=== PATIENT | male | born 1960 | race Caucasian/White ===

== ENCOUNTER → 2017-11-29 | Outpatient (CLI) | payer OTHER ==
[2017-11-29 10:04] VITALS: BP 153/90; PULSE 75; RESP 16; TEMP 98
== END | disposition home or self-care (01) ==
LOC: PROCWHC3 09:45
PROVIDERS: ATTEND Surgery Plastic and Reconstructive Surgery
DX: K94.03 Colostomy malfunction (principal)
CPT/HCPCS: 99214

== ENCOUNTER 2017-12-01 08:26 | Day surgery (SDC) | payer BC, OTHER ==
[2017-11-28 18:21] VITALS: BMI 39.1
--- NOTE | 2017-12-01 00:42 | P.GSHP ---
History of Present Illness H&P Date: 12/01/17 CHIEF COMPLAINT: History of rectal cancer HISTORY OF PRESENT ILLNESS: The patient is a 57-year-old male who presents with history of rectal cancer. Lower endoscopy was offered for further evaluation and management. PAST MEDICAL HISTORY: Please see list. PAST SURGICAL HISTORY: Please see list. MEDICATIONS: Please see list. ALLERGIES: Please see list. SOCIAL HISTORY: No illicit drug use FAMILY HISTORY: No reports of Crohn disease or ulcerative colitis. REVIEW OF ORGAN SYSTEMS: CONSTITUTIONAL: No reports of fevers or chills. PHYSICAL EXAM: VITAL SIGNS: Stable GENERAL: Well-developed pleasant in no acute distress. HEENT: No scleral icterus. Extraocular movements grossly intact. Moist buccal mucosa. NECK: Supple without lymphadenopathy. CHEST: Unlabored respirations. Equal bilateral excursions. CARDIOVASCULAR: Regular rate and rhythm. Distal 2+ pulses. ABDOMEN: Soft, nontender, nondistended. Descending left lower quadrant colostomy MUSCULOSKELETAL: No clubbing, cyanosis, or edema. ASSESSMENT: 1. History of rectal cancer 2. Ostomy status PLAN: 1. Recommend proceeding with a lower endoscopy Past Medical History Past Medical History: Cancer, Hypertension, Sleep Apnea/CPAP/BIPAP Additional Past Medical History / Comment(s): Colon CA, 10/2011, HAS COLOSTOMY. NOT USING CPAP. History of Any Multi-Drug Resistant Organisms: None Reported Past Surgical History: Bowel Resection Additional Past Surgical History / Comment(s): Colostomy. LASER EYES. COLONOSCOPIES. Past Anesthesia/Blood Transfusion Reactions: No Reported Reaction Smoking Status: Never smoker - Past Family History Father Family Medical History: Cancer Additional Family Medical History / Comment(s): PROSTATE CA. Daughter(s) Family Medical History: Blood Disorder Additional Family Medical History / Comment(s): MTHFR Medications and Allergies Home Medications Medication Instructions Recorded Confirmed Type Lisinopril-Hctz 20-12.5 mg 1 tab PO DAILY 11/28/17 11/29/17 History [Zestoretic 20-12.5] Allergies Allergy/AdvReac Type Severity Reaction Status Date / Time No Known Allergies Allergy Verified 11/29/17 09:56
[~2017-12-01 08:26] MED LIST: LACTATED RINGERS 1,000 ML IV SCH; LIDOCAINE 1% 20 ML VIAL (10MG/ML) FOR IV START INTRADERMA PRN; MIDAZOLAM 2 MG/2 ML VIAL IV PRN
[2017-12-01 09:16] VITALS: RESP 16; TEMP 97.3
[2017-12-01] MEDS ORDERED: PROPOFOL 10 MG/ML 20 ML VIAL IV ONE (09:29)
--- NOTE | 2017-12-01 09:54 | P.PCN ---
Date of Procedure: 12/01/17 Description of Procedure: PREOPERATIVE DIAGNOSIS: History of rectal cancer Descending colostomy status Colonoscopy surveillance POSTOPERATIVE DIAGNOSIS: History of rectal cancer Descending colostomy status Colonoscopy surveillance OPERATION: Colonoscopy through descending colostomy to appendiceal orifice. SURGEON: Marilou So MD. ANESTHESIA: MAC. INDICATIONS: The patient is a 57-year-old male who presents for colonoscopy following rectal cancer and descending colostomy, 2011. Benefits and risks were described and informed consent was obtained. DESCRIPTION OF PROCEDURE: The patient had undergone Gatorade, MiraLAX and Dulcolax prep. He had been brought into the operating room and laid supine. The stoma appliance was removed. An Olympus colonoscope was advanced through the descending colostomy to the appendiceal orifice. The prep was excellent with clear visualization of the mucosal folds. The scope was removed with visualization of each mucosal fold. No scattered diverticulosis was encountered. No colonic polyps were found. No evidence of focal colitis was found. The colon was desufflated. His stoma appliance was applied. The patient had tolerated the procedure well. Withdrawal time was over 6 minutes. FINDINGS: No arteriovenous malformations. No adenomatous polyps. No focal colitis. RECOMMENDATIONS: Lower endoscopy in 3 years, 2020 Plan - Discharge Summary New Discharge Prescriptions: No Action Lisinopril-Hctz 20-12.5 mg [Zestoretic 20-12.5] 1 tab PO DAILY Discharge Medication List Lisinopril-Hctz 20-12.5 mg [Zestoretic 20-12.5] 1 tab PO DAILY 11/28/17 [History ]
[2017-12-01 10:19] VITALS: BP 128/84; PULSE 72
== END 2017-12-01 11:03 | disposition home or self-care (01) ==
LOC: ORWHC2ENDO 08:26
PROVIDERS: ATTEND Surgery Plastic and Reconstructive Surgery
DX: C20 Malignant neoplasm of rectum (principal); I10 Essential (primary) hypertension; G47.30 Sleep apnea, unspecified; Z79.899 Other long term (current) drug therapy; Z93.3 Colostomy status
CPT/HCPCS: 44388; J2704; 44389

== ENCOUNTER → 2018-08-01 | Outpatient (CLI) | payer OTHER ==
--- NOTE | 2018-08-01 16:33 | XR ---
Lumbar spine HISTORY: Low back pain, lifting injury 3 views of the lumbar spine Lumbar vertebral bodies show preserved height, alignment, and bone mineralization. Sclerosis in the p osterior elements of the lower lumbar spine is noted compatible with facet arthropathy. There is mild multilevel spondylosis. Some loss of disc height present L5-S1. Bone mineralization is mildly reduce d. IMPRESSION: Degenerative disc disease and facet arthropathy.
== END | disposition home or self-care (01) ==
LOC: RADXRMAIN 15:39
PROVIDERS: ATTEND Emergency Medicine
DX: M51.36 Other intervertebral disc degeneration, lumbar region (principal); M46.96 Unspecified inflammatory spondylopathy, lumbar region
CPT/HCPCS: 72100

== ENCOUNTER 2020-07-16 06:45 | Day surgery (SDC) | payer OTHER ==
[2020-07-14 09:46] VITALS: BMI 30.4
[~2020-07-16 06:45] MED LIST changes: -LIDOCAINE 1% 20 ML VIAL (10MG/ML) FOR IV START INTRADERMA PRN; -MIDAZOLAM 2 MG/2 ML VIAL IV PRN
[2020-07-16 07:16] LABS: Glucose,Whole Blood 108 mg/dL (75-99)
[2020-07-16] MEDS ORDERED: LIDOCAINE 1% (10MG/ML) FOR IV START INTRADERMA ONE (07:18)
[2020-07-16 07:21] VITALS: TEMP 97.1
[2020-07-16] MEDS ORDERED: PROPOFOL 10 MG/ML 20 ML VIAL IV ONE (07:41)
--- NOTE | 2020-07-16 07:57 | P.GSHP ---
History of Present Illness H&P Date: 07/16/20 CHIEF COMPLAINT: Rectal bleed, rectal cancer, colostomy HISTORY OF PRESENT ILLNESS: The patient is a 60-year-old male with rectal cancer history including ostomy presents with rectal bleeding. Lower endoscopy was offered for further evaluation and management. PAST MEDICAL HISTORY: Please see list. PAST SURGICAL HISTORY: Please see list. MEDICATIONS: Please see list. ALLERGIES: Please see list. SOCIAL HISTORY: No illicit drug use FAMILY HISTORY: No reports of Crohn disease or ulcerative colitis. REVIEW OF ORGAN SYSTEMS: CONSTITUTIONAL: No reports of fevers or chills. PHYSICAL EXAM: VITAL SIGNS: Stable GENERAL: Well-developed pleasant in no acute distress. HEENT: No scleral icterus. Extraocular movements grossly intact. Moist buccal mucosa. NECK: Supple without lymphadenopathy. CHEST: Unlabored respirations. Equal bilateral excursions. CARDIOVASCULAR: Regular rate and rhythm. Distal 2+ pulses. ABDOMEN: Soft, nontender, nondistended. MUSCULOSKELETAL: No clubbing, cyanosis, or edema. ASSESSMENT: 1. History of rectal cancer and bleeding 2. History of ostomy PLAN: 1. Recommend proceeding with a lower endoscopy Past Medical History Past Medical History: Cancer, Diabetes Mellitus, Hypertension, Sleep Apnea/CPAP/ BIPAP Additional Past Medical History / Comment(s): hx Colon CA, HAS COLOSTOMY. recent blood from rectum, NOT USING CPAP. History of Any Multi-Drug Resistant Organisms: None Reported Past Surgical History: Bowel Resection Additional Past Surgical History / Comment(s): bowel resection with Colostomy. LASER EYES. COLONOSCOPIES. Past Anesthesia/Blood Transfusion Reactions: No Reported Reaction Smoking Status: Never smoker - Past Family History Father Family Medical History: Cancer Additional Family Medical History / Comment(s): PROSTATE CA. Daughter(s) Family Medical History: Blood Disorder Additional Family Medical History / Comment(s): MTHFR, hx blood clot in arm and neck Medications and Allergies Home Medications Medication Instructions Recorded Confirmed Type Lisinopril-Hctz 20-12.5 mg 1 tab PO DAILY 11/28/17 07/16/20 History [Zestoretic 20-12.5] metFORMIN HCL 500 mg PO DAILY 07/14/20 07/16/20 History Allergies Allergy/AdvReac Type Severity Reaction Status Date / Time No Known Allergies Allergy Verified 07/16/20 07:04 Surgical - Exam Vital Signs Temp Pulse Resp BP Pulse Ox 97.1 F L 73 16 148/83 99 07/16/20 07:17 07/16/20 07:17 07/16/20 07:17 07/16/20 07:17 07/16/20 07:17 Results - Labs Abnormal Lab Results - Last 24 Hours (Table) 07/16/20 Range/Units 07:15 POC Glucose (mg/dL) 108 H (75-99) mg/dL
--- NOTE | 2020-07-16 08:01 | P.PCN ---
Date of Procedure: 07/16/20 Description of Procedure: PREOPERATIVE DIAGNOSIS: Recent rectal bleeding History of rectal cancer Descending colostomy status Colorectal cancer surveillance POSTOPERATIVE DIAGNOSIS: Recent rectal bleeding History of rectal cancer Descending colostomy status Colorectal cancer surveillance OPERATION: Colonoscopy through descending colostomy to appendiceal orifice, cecum. SURGEON: Marilou So MD. ANESTHESIA: MAC. INDICATIONS: The patient is a 60-year-old male who presents with rectal bleeding and history of rectal cancer including descending colostomy, 2013. He presents for diagnostic or therapeutic assessment. Benefits and risks were described and informed consent was obtained. DESCRIPTION OF PROCEDURE: The patient had undergone Sutab prep. He had been brought into the operating room and laid supine. The stoma appliance was removed. An Olympus colonoscope was advanced through the descending colostomy to the appendiceal orifice. The prep was excellent with clear visualization of the mucosal folds. The scope was removed with visualization of each mucosal fold. No scattered diverticulosis was encountered. No colonic polyps were found. No evidence of focal colitis was found. The colon was desufflated. The patient was transitioned in the left lateral decubitus position where along the previous anus, no palpable tumors were identified. His stoma appliance was applied. The patient had tolerated the procedure well. Withdrawal time was over 6 minutes. FINDINGS: [place] preparation quality scale 1 (1-5) No arteriovenous malformations. No adenomatous polyps. No focal colitis. RECOMMENDATIONS: Lower endoscopy in 3 years2023 Plan - Discharge Summary New Discharge Prescriptions: Continue Lisinopril-Hctz 20-12.5 mg [Zestoretic 20-12.5] 1 tab PO DAILY metFORMIN HCL 500 mg PO DAILY Discharge Medication List Lisinopril-Hctz 20-12.5 mg [Zestoretic 20-12.5] 1 tab PO DAILY 11/28/17 [History] metFORMIN HCL 500 mg PO DAILY 07/14/20 [History] Follow up Appointment(s)/Referral(s): Marilou So MD [STAFF PHYSICIAN] - As Needed Patient Instructions/Handouts: Colonoscopy (DC), *Surgery [facility] - (Anesthesia) Endoscopy Discharge Instructions, Colostomy Care (DC) Activity/Diet/Wound Care/Special Instructions: Colonoscopy 3 years, 2023 Discharge Disposition: HOME SELF-CARE
[2020-07-16 08:14] VITALS: BP 146/86; PULSE 73; RESP 16
== END 2020-07-16 08:44 | disposition home or self-care (01) ==
LOC: ORWHC2ENDO 06:45
PROVIDERS: ATTEND Surgery Plastic and Reconstructive Surgery
DX: K62.5 Hemorrhage of anus and rectum (principal); Z85.048 Personal history of other malignant neoplasm of rectum, rectosigmoid junction, and anus; Z93.3 Colostomy status; E11.9 Type 2 diabetes mellitus without complications; I10 Essential (primary) hypertension; G47.30 Sleep apnea, unspecified; Z90.49 Acquired absence of other specified parts of digestive tract; Z80.42 Family history of malignant neoplasm of prostate; Z83.2 Family history of diseases of the blood and blood-forming organs and certain disorders involving the immune mechanism; Z79.84 Long term (current) use of oral hypoglycemic drugs; Z79.899 Other long term (current) drug therapy
CPT/HCPCS: 44388; J2704